=== PATIENT | male | born 1965 | race Caucasian/White ===

== ENCOUNTER → 2017-12-07 | Outpatient (CLI) | payer MEDICARE ==
--- NOTE | 2017-12-07 16:44 | CT ---
EXAMINATION TYPE: CT abdomen pelvis w con DATE OF EXAM: 12/07/2017 COMPARISON: NONE HISTORY: 52-year-old male complains of periumbilical pain and increased white blood cell count. TECHNIQUE: Contiguous axial scanning of the abdomen and pelvis following administration of 100 ml Omn ipaque 300 IV contrast. Delayed images through the kidneys and coronal/sagittal reconstructions perf ormed. CT DLP: 543.3 mGycm Automated exposure control for dose reduction was used. FINDINGS: Heart is normal size without pericardial effusion. Dependent atelectasis both lung bases. No pleural effusion. No focal liver lesion or biliary ductal dilatation. Portal venous system is patent. Gallbladder, adrenal glands, left kidney, spleen, and pancreas appear within normal limits. There is a 1.9 cm central cyst in the mid right kidney. Symmetric uptake and excretion of contrast from both k idneys. No dilated small bowel, free fluid, or free air. Normal appendix. Oral contrast has progressed to the rectum. No pericolonic inflammatory change. No mesenteric or retroperitoneal lymphadenopathy. Bladder is urine distended. No abnormal fluid collection in the pelvis or pelvic lymphadenopathy. Bones: Postsurgical changes of L4-L5 posterior fusion with laminectomies. IMPRESSION: NO ACUTE INFLAMMATORY PROCESS IDENTIFIED IN THE ABDOMEN OR PELVIS TO EXPLAIN THE PATIENT'S SYMPTOMS.
== END | disposition home or self-care (01) ==
LOC: RADCTMAIN 12:27
PROVIDERS: ATTEND Family Medicine
DX: R10.9 Unspecified abdominal pain (principal)
CPT/HCPCS: 74177; Q9967

== ENCOUNTER 2019-04-23 09:05 | Day surgery (SDC) | payer OTHER, MEDICARE ==
[2019-04-18 16:14] VITALS: BMI 28.3
[~2019-04-23 09:05] MED LIST: LACTATED RINGERS 1,000 ML IV SCH; LIDOCAINE 1% 20 ML VIAL (10MG/ML) FOR IV START INTRADERMA PRN
[2019-04-23 09:37] VITALS: RESP 16; TEMP 97.5
[2019-04-23] MEDS ORDERED: PROPOFOL 10 MG/ML 20 ML VIAL IV ONE (10:09)
--- NOTE | 2019-04-23 10:15 | P.GSHP ---
History of Present Illness H&P Date: 04/23/19 Chief Complaint: Screening colonoscopy This is a 53-year-old male who presents today for screening colonoscopy. Patient denies a significant GI complaints. Past Medical History Past Medical History: Hypertension History of Any Multi-Drug Resistant Organisms: None Reported Past Surgical History: Back Surgery Past Anesthesia/Blood Transfusion Reactions: No Reported Reaction Smoking Status: Current some day smoker - Past Family History Mother Family Medical History: Deep Vein Thrombosis (DVT) Father Family Medical History: Cancer Additional Family Medical History / Comment(s): Prostate Medications and Allergies Home Medications Medication Instructions Recorded Confirmed Type Diazepam [Valium] 5 mg PO BID 04/18/19 04/23/19 History Lisinopril [Zestril] 20 mg PO DAILY 04/18/19 04/23/19 History Methadone [Dolophine] 10 mg PO Q8H PRN 04/18/19 04/23/19 History Varenicline [Chantix Starter Pack] 0.5 mg PO DAILY 04/18/19 04/23/19 History Allergies Allergy/AdvReac Type Severity Reaction Status Date / Time No Known Allergies Allergy Verified 04/18/19 15:58 Surgical - Exam Vital Signs Temp Pulse Resp BP Pulse Ox 97.5 F L 86 16 134/86 96 04/23/19 09:30 04/23/19 09:30 04/23/19 09:30 04/23/19 09:30 04/23/19 09:30 - General well developed, well nourished, no distress - Eyes PERRL - ENT normal pinna - Neck no masses - Respiratory normal expansion - Cardiovascular Rhythm: regular - Abdomen Abdomen: soft, non tender Assessment and Plan Assessment: We'll perform screening colonoscopy.
--- NOTE | 2019-04-23 10:27 | P.OP ---
Date of Procedure: 04/23/19 Preoperative Diagnosis: Screening colonoscopy Postoperative Diagnosis: Diverticulosis Rectal polyps Procedure(s) Performed: Colonoscopy Anesthesia: MAC Surgeon: Chip Galicia Pathology: other (Rectal polyp) Condition: stable Disposition: PACU Description of Procedure: The patient's placed on the endoscopy table in the lateral position. She he received IV sedation. Digital rectal exam was performed revealed no abnormalities. The flexible colonoscope was then placed patient anus and passed throughout the entire colon. The ileocecal valve was visualized. The cecum, ascending and transverse colon appeared normal. In the descending and sigmoid: was mild diverticular changes. The scope was then brought back and the rectum and there was several polyp seen this removed with a cold forcep. Scope was withdrawn for patient.
[2019-04-23 11:07] VITALS: BP 134/89; PULSE 71
== END 2019-04-23 11:11 | disposition home or self-care (01) ==
LOC: ORWHC2ENDO 09:05
PROVIDERS: ATTEND Surgery
DX: Z12.11 Encounter for screening for malignant neoplasm of colon (principal); K57.30 Diverticulosis of large intestine without perforation or abscess without bleeding; K62.1 Rectal polyp; I10 Essential (primary) hypertension; F17.200 Nicotine dependence, unspecified, uncomplicated; Z80.42 Family history of malignant neoplasm of prostate; Z79.899 Other long term (current) drug therapy
CPT/HCPCS: 88305; 45380; J2704

== ENCOUNTER 2019-05-17 08:43 | Day surgery (SDC) | payer OTHER, MEDICARE ==
[2019-05-15 09:49] VITALS: BMI 29.5
[~2019-05-17 08:43] MED LIST changes: -LIDOCAINE 1% 20 ML VIAL (10MG/ML) FOR IV START INTRADERMA PRN
[2019-05-17 08:58] VITALS: RESP 16; TEMP 97.3
[2019-05-17] MEDS ORDERED: PROPOFOL 10 MG/ML 20 ML VIAL IV ONE (09:30)
--- NOTE | 2019-05-17 09:33 | P.GSHP ---
History of Present Illness H&P Date: 05/17/19 Chief Complaint: . GERD This is a 53-year-old male referred from Dr. Dennis Samuel. Patient's today for EGD. He's had issues with GERD. He also has a strong family history of esophageal cancer with his father having esophageal cancer. Past Medical History Past Medical History: Hypertension Additional Past Medical History / Comment(s): hx H. Pyloir, stomach pains, degenerative disks History of Any Multi-Drug Resistant Organisms: None Reported Past Surgical History: Back Surgery, Orthopedic Surgery Additional Past Surgical History / Comment(s): EGD, Colonoscopy, back surgery x 2(has cage), surgery for index finger left hand to reattach finger Past Anesthesia/Blood Transfusion Reactions: No Reported Reaction Smoking Status: Current some day smoker - Past Family History Mother Family Medical History: Deep Vein Thrombosis (DVT) Father Family Medical History: Cancer Additional Family Medical History / Comment(s): esophageal Medications and Allergies Home Medications Medication Instructions Recorded Confirmed Type Diazepam [Valium] 5 mg PO BID 04/18/19 05/17/19 History Lisinopril [Zestril] 20 mg PO DAILY 04/18/19 05/17/19 History Methadone [Dolophine] 10 mg PO Q8H PRN 04/18/19 05/17/19 History Varenicline Tartrate [Chantix 1 mg PO DIRECTED 05/15/19 05/17/19 History Continuing Pack] Allergies Allergy/AdvReac Type Severity Reaction Status Date / Time No Known Allergies Allergy Verified 05/17/19 08:53 Surgical - Exam Vital Signs Temp Pulse Resp BP Pulse Ox 97.3 F L 76 16 134/92 98 05/17/19 08:55 05/17/19 08:55 05/17/19 08:55 05/17/19 08:55 05/17/19 08:55 - General well developed, well nourished, no distress - Eyes PERRL - ENT normal pinna - Neck no masses - Respiratory normal expansion - Cardiovascular Rhythm: regular - Abdomen Abdomen: soft, non tender Assessment and Plan Assessment: GERD. We'll perform EGD.
--- NOTE | 2019-05-17 09:47 | P.OP ---
Date of Procedure: 05/17/19 Preoperative Diagnosis: GERD Postoperative Diagnosis: Antral gastritis Esophagitis Procedure(s) Performed: EGD Anesthesia: MAC Surgeon: Chip Galicia Pathology: other (Antrum, esophagus) Condition: stable Disposition: PACU Description of Procedure: The patient's placed on the endoscopy table in the lateral position. He received IV sedation. The gastroscope placed oropharynx passed in the esophagus into the stomach. Scope was then placed through the pylorus. The first and second portion of the duodenum. Normal. Scope was then brought back and the antrum was mildly inflamed. A biopsies performed. The scope was then retroflexed the remainder some appeared normal. There is no significant hiatal hernia. The GE junction was at 40 cm The distal esophagus. Inflamed and biopsies were performed. The proximal esophagus appeared normal. Scope was withdrawn for patient.
[2019-05-17 10:05] VITALS: BP 124/83; PULSE 78
== END 2019-05-17 10:31 | disposition home or self-care (01) ==
LOC: ORWHC2ENDO 08:43
PROVIDERS: ATTEND Surgery
DX: K29.50 Unspecified chronic gastritis without bleeding (principal); K21.0 Gastro-esophageal reflux disease with esophagitis; I10 Essential (primary) hypertension; F17.200 Nicotine dependence, unspecified, uncomplicated; Z79.899 Other long term (current) drug therapy
CPT/HCPCS: 88305; 43239; J2704

== ENCOUNTER → 2019-06-07 | Outpatient (CLI) | payer MEDICARE, OTHER ==
[2019-06-07 13:32] LABS: Basophils # (A) 0.1 k/uL (0-0.2); Basophils % (A) 1 %; Eosinophils # (A) 0.2 k/uL (0-0.7); Eosinophils % (A) 2 %; HCT 54.1 % (39.0-53.0); HGB 17.7 gm/dL (13.0-17.5); Lymphocytes # (A) 2.8 k/uL (1.0-4.8); Lymphocytes % (A) 25 %; MCH 35.1 pg (25.0-35.0); MCHC 32.8 g/dL (31.0-37.0); MCV 107.2 fL (80.0-100.0); Macrocytosis Moderate; Mean Platelet Volume 7.4; Monocytes # (A) 0.5 k/uL (0-1.0); Monocytes % (A) 5 %; Neutrophils # (A) 7.2 k/uL (1.3-7.7); Neutrophils % (A) 66 %; Platelet Count 217 k/uL (150-450); RBC 5.05 m/uL (4.30-5.90); RDW 13.5 % (11.5-15.5); WBC 10.9 k/uL (3.8-10.6)
== END | disposition home or self-care (01) ==
LOC: LABPAT 12:17
PROVIDERS: ATTEND Surgery
DX: Z01.818 Encounter for other preprocedural examination (principal); K21.0 Gastro-esophageal reflux disease with esophagitis; F17.200 Nicotine dependence, unspecified, uncomplicated; Z01.812 Encounter for preprocedural laboratory examination
CPT/HCPCS: 36415; 85025; 93005

== ENCOUNTER 2019-06-12 08:31 | Observation (INO) | payer OTHER, MEDICARE ==
[~2019-06-12 08:31] MED LIST changes: +DEXAMETHASONE SOD PHOSPHATE 10 MG/ML 1 ML VIAL IV ONE; +HEPARIN SODIUM,PORCINE 5,000 UNIT/ML 1 ML VIAL SQ ONE; -LACTATED RINGERS 1,000 ML IV SCH; +LIDOCAINE 1% 20 ML VIAL (10MG/ML) FOR IV START INTRADERMA PRN; +MIDAZOLAM 2 MG/2 ML VIAL IV PRN; +ONDANSETRON 4 MG/2 ML VIAL IVP ONE; +SCOPOLAMINE 1.5MG/72HR PATCH TRANSDERM ONE
[2019-06-12] MEDS ORDERED: LACTATED RINGERS 1,000 ML IV ONE ×2 (09:02→11:28)
--- NOTE | 2019-06-12 10:31 | P.GSHP ---
History of Present Illness H&P Date: 06/12/19 Chief Complaint: GERD This a 53-year-old male referred from Dr. Dennis Samuel.The patient has had long- standing problems with reflux esophagitis. The patient underwent recent EGD is found have evidence of esophagitis. Patient has been well informed on the procedure of laparoscopic Maeve fundoplication. The patient is aware the risk of the conversion to the open procedure, risk of injury to the stomach, liver and spleen. The patient is also a risk of recurrent GERD and dysphagia symptoms. The patient understands there is a postoperative diet of full liquids for 2 weeks after surgery. Past Medical History Past Medical History: GERD/Reflux, Hypertension Additional Past Medical History / Comment(s): hx H. Pylori, stomach pains, degenerative disks History of Any Multi-Drug Resistant Organisms: None Reported Past Surgical History: Back Surgery, Orthopedic Surgery Additional Past Surgical History / Comment(s): EGD, Colonoscopy, back surgery x 2(has cage), surgery for index finger left hand to reattach finger Past Anesthesia/Blood Transfusion Reactions: No Reported Reaction Smoking Status: Current some day smoker - Past Family History Mother Family Medical History: Deep Vein Thrombosis (DVT) Father Family Medical History: Cancer Additional Family Medical History / Comment(s): esophageal Medications and Allergies Home Medications Medication Instructions Recorded Confirmed Type Diazepam [Valium] 5 mg PO BID 04/18/19 06/04/19 History Lisinopril [Zestril] 20 mg PO DAILY 04/18/19 06/04/19 History Methadone [Dolophine] 10 mg PO Q8H 04/18/19 06/04/19 History Varenicline Tartrate [Chantix 1 mg PO DIRECTED 05/15/19 06/04/19 History Continuing Pack] Allergies Allergy/AdvReac Type Severity Reaction Status Date / Time No Known Allergies Allergy Verified 06/04/19 14:01 Surgical - Exam Vital Signs Temp Pulse Resp BP Pulse Ox 98.3 F 96 18 157/75 96 06/12/19 08:50 06/12/19 08:50 06/12/19 08:50 06/12/19 08:50 06/12/19 08:50 - General well developed, well nourished, no distress - Eyes PERRL - ENT normal pinna - Neck no masses - Respiratory normal expansion - Cardiovascular Rhythm: regular - Abdomen Abdomen: soft, non tender Assessment and Plan Assessment: GERD. We'll perform laparoscopic Maeve fundoplication.
[2019-06-12] MEDS ORDERED: SUCCINYLCHOLINE CHLORIDE 100 MG/5 ML SYR IV ONE (10:46)
[2019-06-12] MEDS ORDERED: fentaNYL (PF) 50 MCG/ML 2 ML AMP ONE (10:46)
[2019-06-12] MEDS ORDERED: HYDROmorphone (PF) 1 MG/ML ONE (10:46)
[2019-06-12] MEDS ORDERED: NEOSTIGMINE 1 MG/ML 10 ML VIAL ONE (10:46)
[2019-06-12] MEDS ORDERED: LIDOCAINE 1% INJ 10MG/ML (20 ML MDV) ONE (10:46)
[2019-06-12] MEDS ORDERED: MIDAZOLAM 2 MG/2 ML VIAL ONE (10:46)
[2019-06-12] MEDS ORDERED: PROPOFOL 10 MG/ML 20 ML VIAL IV ONE (10:46)
[2019-06-12] MEDS ORDERED: DEXAMETHASONE SOD PHOS (MDV) 100 MG/10 ML VIAL ONE (10:46)
[2019-06-12] MEDS ORDERED: PHENYLEPHRINE-0.9% NACL SYG 1 MG/10 ML SYRINGE ONE (10:46)
[2019-06-12] MEDS ORDERED: ROCURONIUM BROMIDE 10 MG/ML 10 ML VIAL IV ONE (10:46)
[2019-06-12] MEDS ORDERED: GLYCOPYRROLATE 0.2 MG/ML 2 ML VIAL ONE (10:46)
[2019-06-12] MEDS ORDERED: KETOROLAC 30 MG/ML 1 ML VIAL ONE (10:46)
[2019-06-12] MEDS ORDERED: BUPIVACAIN-EPI 0.25%-1:200,000 30 ML VIAL SQ ONE (11:29)
[2019-06-12] MEDS: HYDROmorphone 0.5 MG/0.5 ML SYRINGE IVP PRN ×4 (12:14→12:36)
--- NOTE | 2019-06-12 12:32 | P.OP ---
Date of Procedure: 06/12/19 Preoperative Diagnosis: GERD Postoperative Diagnosis: GERD Procedure(s) Performed: Laparoscopic Maeve fundoplication Anesthesia: DAR Surgeon: Chip Galicia Pathology: none sent Condition: stable Disposition: PACU Description of Procedure: Estefani patient was placed on the operating table in the supine position. The patient received general anesthesia. And was placed in dorsal lithotomy position. The patient was prepped and draped in the usual sterile fashion. The skin incision sites were anesthetized with 1% local Xylocaine. The skin was incised in the left periumbilical area and then using a blade less 5 mm trocar under direct visualization panel cavity was entered. After adequate insufflation the laparoscope was then placed into the peritoneal cavity. Next a 5 mm trochars placed in the right epigastric position. Another 5 millimeter trocar the right lateral position. Another 5 millimeter trocar in the left lateral position a 5 mm trocar is placed in the left epigastric position. And then the initial 5 mm trocar was exchanged for a 10 mm trocar. The left lateral lobe liver was retracted. The hernia was seen. The crural defect was then dissected using the Harmonic scissors device. A 360 crural dissection was performed the esophagus stomach was reduced back into the peritoneal Cavity. The crural defect was then closed using 2-0 Ethibond suture. Next the fundus of the stomach was mobilized using the Midland scissors device. and then a 58- Occitan bougie dilator was placed oropharynx passed into the esophagus and stomach the fundal plication wrap was then performed by grasping the fundus posteriorly and bringing it around the esophagus and stomach fundoplication was then performed using 2-0 Ethibond suture. Care was taken that the fundal location rested over top of the intra-abdominal esophagus. There was no injury seen to the stomach or esophagus. The dilator was then withdrawn. The abdomen was irrigated there is no bleeding seen. The trochars were then withdrawn and then skin incision sites were closed using 3-0 Monocryl suture Steri-Strips are applied. Patient thought procedure well and sent to recovery room in stable condition.
[2019-06-12] MEDS ORDERED: ONDANSETRON 4 MG/2 ML VIAL IVP PRN (12:33)
[2019-06-12] MEDS: LACTATED RINGERS 1,000 ML IV SCH ×2 (13:53→23:08)
[2019-06-12] MEDS: D5-0.45% NACL WITH KCL 20MEQ/L 1,000 ML IV SCH ×2 (15:12→22:31)
[2019-06-12] MEDS: HYDROmorphone 1 MG/ML 1 ML SYRINGE IVP PRN ×3 (15:13→23:15)
--- NOTE | 2019-06-12 16:58 | FL ---
SINGLE CONTRAST ESOPHAGRAM: CLINICAL HISTORY: 53-year-old male status post Maeve fundoplication, rule out leak/obstruction TECHNIQUE: Single contrast exam performed with 50 ml Omnipaque 350 contrast. Total fluoroscopy time: 47 seconds. Total images: 13. FINDINGS: The patient swallowed oral contrast without difficulty or delay. Esophageal peristalsis and motility are within normal limits. There is mild delay in the passage of contrast from the esophagus into th e stomach. No evidence for extravasation of contrast at the surgical level, GE junction, to suggest l eak. There is trace crescent of free air below the right hemidiaphragm IMPRESSION: Mild postoperative obstruction at the surgical level. No evidence of leak. Trace post surgical free a ir on the right.
[2019-06-13] MEDS: HYDROmorphone 1 MG/ML 1 ML SYRINGE IVP PRN ×2 (03:56→08:55)
[2019-06-13] MEDS: D5-0.45% NACL WITH KCL 20MEQ/L 1,000 ML IV SCH (06:10)
[2019-06-13 08:25] VITALS: BP 142/90; PULSE 92; RESP 15; TEMP 97.5
[2019-06-13] MEDS ORDERED: ENOXAPARIN 40 MG/0.4 ML SYRINGE SQ SCH (09:00)
[2019-06-13] MEDS ORDERED: HYDROcodone/APAP 5-325MG 1 EACH TAB PO PRN (09:04)
--- NOTE | 2019-06-13 09:58 | P.CONS ---
History of Present Illness - Reason for Consult Consult date: 06/13/19 Medical management, hypertension, anxiety, nicotine/marijuana use Requesting physician: Chip Galicia - Chief Complaint Gastroesophageal reflux disease - History of Present Illness This is a 53-year-old gentleman admitted with history of significant gastroesophageal reflux disease, status post EGD report reflux esophagitis hypertension, history of H. pylori, stomach pains, degenerative disc disease, status post spinal surgery, anxiety, ongoing nicotine dependence, marijuana use and multiple other medical issues. Patient is status post laparoscopic nice and fundoplication, tolerated procedure well. Vital signs stable. Past esophagram with niece on clear liquid diet initiated. Ambulating, showered this morning, tolerating exertion well. No flatus, no bowel movement. Currently denies abdominal pain. No nausea, no vomiting. Denies chest pain, palpitations or shortness of breath. Past Medical History Past Medical History: GERD/Reflux, Hypertension Additional Past Medical History / Comment(s): hx H. Pylori, stomach pains, degenerative disks History of Any Multi-Drug Resistant Organisms: None Reported Past Surgical History: Back Surgery, Orthopedic Surgery Additional Past Surgical History / Comment(s): EGD, Colonoscopy, back surgery x 2(has cage), surgery for index finger left hand to reattach finger Past Anesthesia/Blood Transfusion Reactions: No Reported Reaction Past Psychological History: Anxiety Smoking Status: Current some day smoker Past Alcohol Use History: Occasional Additional Past Alcohol Use History / Comment(s): Taking Chantix now, smoked approx 2 ppd but has cut back to 3-4 cigarettes per day. Past Drug Use History: Marijuana - Past Family History Mother Family Medical History: Deep Vein Thrombosis (DVT) Father Family Medical History: Cancer Additional Family Medical History / Comment(s): esophageal Medications and Allergies Home Medications Medication Instructions Recorded Confirmed Type Diazepam [Valium] 5 mg PO BID 04/18/19 06/13/19 History Lisinopril [Zestril] 20 mg PO DAILY 04/18/19 06/13/19 History Methadone [Dolophine] 10 mg PO Q8H 04/18/19 06/13/19 History Varenicline Tartrate [Chantix 1 mg PO BID 05/15/19 06/13/19 History Continuing Pack] Allergies Allergy/AdvReac Type Severity Reaction Status Date / Time No Known Allergies Allergy Verified 06/13/19 06:19 Physical Exam Vitals: Vital Signs Temp Pulse Pulse Resp BP Pulse Ox 06/13/19 07:46 97.5 F L 92 15 142/90 97 06/13/19 02:15 96.7 F L 106 H 16 122/55 94 L 06/12/19 20:33 98.2 F 107 H 16 117/77 94 L 06/12/19 15:45 109 H 114/61 93 L 06/12/19 15:41 16 06/12/19 15:30 100 128/78 94 L 06/12/19 15:15 111 H 146/93 93 L 06/12/19 15:00 103 H 124/86 93 L 06/12/19 14:45 102 H 136/88 94 L 06/12/19 14:30 103 H 129/72 93 L 06/12/19 14:15 104 H 120/68 91 L 06/12/19 14:00 97.8 F 85 16 123/70 94 L 06/12/19 13:32 93 16 108/55 96 06/12/19 13:00 76 16 96/54 93 L 06/12/19 12:45 75 16 114/65 94 L 06/12/19 12:31 75 16 114/65 95 06/12/19 12:16 74 16 124/73 97 06/12/19 12:05 96.8 F L 78 14 125/85 95 06/12/19 08:50 98.3 F 96 18 157/75 96 Intake and Output 06/12/19 06/13/19 06/13/19 22:59 06:59 14:59 Intake Total 1480 590 Balance 1480 590 Intake: Intake, IV Titration 1000 Amount D5-0.45% NaCl with KCl 1000 20Meq/l 1,000 ml @ 125 mls/hr IV .Q8H [facility] Rx#: [id number] Oral 480 590 Other: Voiding Method Toilet # Voids 3 2 PHYSICAL EXAM: VITAL SIGNS: As above GENERAL: Sitting up in bed, no acute distress HEENT: Conjunctivae normal. eyes normal. NECK: No JVD. No thyroid enlargement. No LNs CARDIOVASCULAR: S1, S2 regular.. No murmur RESPIRATION: Breath sounds diminished in the bases. No rhonchi or crackles. No bronchial breathing. ABDOMEN: Soft, distended, status post surgery. No guarding.Bowel sounds heard. LEGS: No edema. no swelling PSYCHIATRY: Alert and oriented X3, mood and affect normal. NERVOUS SYSTEM: Cranial N 2-12 grossly normal. Moves all 4 limbs. No focal deficits. Strength and sensation grossly intact.. Skin: no lesions, no rash Lymphatic system. No LN neck axilla or groin. Assessment and Plan Assessment: -Gastroesophageal reflux disease with reflux esophagitis, status post fundoplication,laparoscopic -Hypertension -Anxiety -Ongoing nicotine dependence -Marijuana use Plan: Continue current medication regime ,monitoring and symptomatic treatment. Vital signs stable, okay to resume JORGE inhibitor once cleared by surgery. Increase ambulation as tolerated. Discharge planning in progress as per surgery. Further recommendations to follow. The impression and plan of care has been dictated as directed. : I performed a history and examination of this patient, discussed the same with the dictator. I agree with the dictator's note ,documented as a scribe. Any additional findings or plans will be noted.
[2019-06-13] MEDS ORDERED: NICOTINE 14MG/24HR PATCH TRANSDERM SCH (10:00)
[2019-06-13] MEDS ORDERED: LISINOPRIL 20 MG TAB PO SCH (11:15)
[2019-06-13] MEDS ORDERED: ACETAMINOPHEN TAB 325 MG TAB PO PRN (11:21)
[2019-06-13 13:35] VITALS: BMI 29.2
--- NOTE | 2019-06-13 15:27 | P.DS ---
Providers Date of admission: 06/12/19 23:42 Expected date of discharge: 06/13/19 Attending physician: Chip Galicia Consults: 06/12/19 12:33 Consult Physician Routine Consulting Provider: Dennis Polo Consult Reason/Comments: Medical management Do you want consulting provider notified?: Yes Primary care physician: [facility] Course: 53-year-old male who underwent Maeve fundoplication with Dr. Galicia. Patient doing well postoperative day. Esophagram negative for leak or obstruction. Tolerating clear liquid diet. Pain controlled on oral medications. He is stable for discharge home today. Please see EMR for further hospital course details. No narcotics prescribed at time of discharge as patient takes methadone outpatient. Discharge diagnosis 1. GERD, status post Maeve fundoplication Nurse practitioner note has been reviewed by physician. Signing provider agrees with the documented findings, assessment, and plan of care. Plan - Discharge Summary Discharge Rx Participant: Yes New Discharge Prescriptions: New Acetaminophen Tab [Tylenol Tab] 650 mg PO Q4H PRN #30 tablet PRN Reason: Pain No Action Methadone [Dolophine] 10 mg PO Q8H Lisinopril [Zestril] 20 mg PO DAILY Diazepam [Valium] 5 mg PO BID Varenicline Tartrate [Chantix Continuing Pack] 1 mg PO BID Discharge Medication List Diazepam [Valium] 5 mg PO BID 04/18/19 [History] Lisinopril [Zestril] 20 mg PO DAILY 04/18/19 [History] Methadone [Dolophine] 10 mg PO Q8H 04/18/19 [History] Varenicline Tartrate [Chantix Continuing Pack] 1 mg PO BID 05/15/19 [History] Acetaminophen Tab [Tylenol Tab] 650 mg PO Q4H PRN #30 tablet 06/13/19 [Rx] Follow up Appointment(s)/Referral(s): Dennis Polo MD [Primary Care Provider] - 06/20/19 9:00 am Chip Galicia MD [STAFF PHYSICIAN] - 06/26/19 2:20 pm Patient Instructions/Handouts: *Surgery [facility] - ([facility]) Lap Maeve Fundiplication Post-Op Instructions Activity/Diet/Wound Care/Special Instructions: No lifting over 10 pounds You may shower. No soaking or tub baths Very light activity until you are reevaluated at your follow up appointment with your surgeon Full liquid diet for two weeks Discharge Disposition: HOME SELF-CARE
== END 2019-06-13 13:58 | disposition home or self-care (01) ==
LOC: OR 08:31 → 4SSUR 12:01 → OR 23:51
PROVIDERS: ADMIT Surgery; ATTEND Surgery
DX: K21.0 Gastro-esophageal reflux disease with esophagitis (principal); I10 Essential (primary) hypertension; F41.9 Anxiety disorder, unspecified; F12.90 Cannabis use, unspecified, uncomplicated; F17.210 Nicotine dependence, cigarettes, uncomplicated; Z86.19 Personal history of other infectious and parasitic diseases; Z79.899 Other long term (current) drug therapy; Z79.891 Long term (current) use of opiate analgesic; Z83.2 Family history of diseases of the blood and blood-forming organs and certain disorders involving the immune mechanism; Z80.0 Family history of malignant neoplasm of digestive organs
CPT/HCPCS: 74210; 43280; G0378 ×2; S4990; J2250; J1644; J1100 ×2; J2710; J0690; J2405; J2001; J1650; J3010; J1885; J1170 ×3; J2370; J0330; J2704; Q9967

== ENCOUNTER 2020-07-25 08:27 | Day surgery (SDC) | payer OTHER, MEDICARE ==
[2020-06-27 14:38] VITALS: BMI 29.2
[~2020-07-25 08:27] MED LIST changes: -DEXAMETHASONE SOD PHOSPHATE 10 MG/ML 1 ML VIAL IV ONE; -HEPARIN SODIUM,PORCINE 5,000 UNIT/ML 1 ML VIAL SQ ONE; +LACTATED RINGERS 1,000 ML IV SCH; +LIDOCAINE 1% (10MG/ML) FOR IV START INTRADERMA PRN; -LIDOCAINE 1% 20 ML VIAL (10MG/ML) FOR IV START INTRADERMA PRN; -MIDAZOLAM 2 MG/2 ML VIAL IV PRN; -ONDANSETRON 4 MG/2 ML VIAL IVP ONE; -SCOPOLAMINE 1.5MG/72HR PATCH TRANSDERM ONE
[2020-07-25 08:51] VITALS: RESP 18; TEMP 97.4
[2020-07-25] MEDS ORDERED: LACTATED RINGERS 1,000 ML IV ONE (08:51)
[2020-07-25] MEDS ORDERED: PROPOFOL 10 MG/ML 20 ML VIAL IV ONE (09:55)
--- NOTE | 2020-07-25 09:56 | P.GSHP ---
History of Present Illness H&P Date: 07/25/20 Chief Complaint: Nausea, vomiting Is a 54-year-old male with a safer EGD. He has issues with nausea vomiting. Past Medical History Past Medical History: GERD/Reflux, Hypertension Additional Past Medical History / Comment(s): hx H. Pylori, stomach pains, degenerative disks History of Any Multi-Drug Resistant Organisms: None Reported Past Surgical History: Back Surgery, Bariatric Surgery, Orthopedic Surgery Additional Past Surgical History / Comment(s): EGD, Colonoscopy, back surgery x 2(has cage), surgery for index finger left hand to reattach finger Past Anesthesia/Blood Transfusion Reactions: No Reported Reaction Smoking Status: Current every day smoker - Past Family History Mother Family Medical History: Deep Vein Thrombosis (DVT) Father Family Medical History: Cancer Additional Family Medical History / Comment(s): esophageal Medications and Allergies Home Medications Medication Instructions Recorded Confirmed Type Methadone [Dolophine] 10 mg PO Q8H 04/18/19 07/24/20 History lisinopriL [Zestril] 20 mg PO DAILY 04/18/19 07/24/20 History Varenicline Tartrate [Chantix 1 mg PO BID 05/15/19 07/24/20 History Continuing Pack] Acetaminophen Tab [Tylenol Tab] 650 mg PO Q4H PRN #30 tablet 06/13/19 07/24/20 Rx Allergies Allergy/AdvReac Type Severity Reaction Status Date / Time No Known Allergies Allergy Verified 07/24/20 11:37 Surgical - Exam Vital Signs Temp Pulse Resp BP Pulse Ox 97.4 F L 102 H 18 129/83 97 07/25/20 08:50 07/25/20 08:50 07/25/20 08:50 07/25/20 08:50 07/25/20 08:50 - General well developed, well nourished, no distress - Eyes PERRL - ENT normal pinna - Neck no masses - Respiratory normal expansion - Cardiovascular Rhythm: regular - Abdomen Abdomen: soft, non tender Assessment and Plan Assessment: Nausea vomiting. We'll perform EGD.
--- NOTE | 2020-07-25 10:10 | P.OP ---
Date of Procedure: 07/25/20 Preoperative Diagnosis: Nausea Vomiting Postoperative Diagnosis: Antral gastritis Procedure(s) Performed: EGD Anesthesia: MAC Surgeon: Chip Galicia Pathology: other (Antrum) Condition: stable Disposition: PACU Description of Procedure: The patient's placed on the endoscopy table in the lateral position. He received IV sedation. The gastroscope placed oropharynx passed in the esophagus and stomach. Scope was placed through the pylorus. The first and second portion of duodenum appeared normal. Scope was then brought back the antrum this was mildly inflamed. A biopsies performed. Scope was unretroflexed and remainder of the stomach appeared normal. There is no evidence of a hiatal hernia. The GE junction was at 40 cm. The distal esophagus appeared normal. The proximal esophagus appeared normal. The scope was then withdrawn from patient.
[2020-07-25 10:34] VITALS: BP 120/84; PULSE 91
== END 2020-07-25 10:47 | disposition home or self-care (01) ==
LOC: ORWHC2ENDO 08:27
PROVIDERS: ATTEND Surgery
DX: K29.50 Unspecified chronic gastritis without bleeding (principal); I12.9 Hypertensive chronic kidney disease with stage 1 through stage 4 chronic kidney disease, or unspecified chronic kidney disease; N18.2 Chronic kidney disease, stage 2 (mild); J44.9 Chronic obstructive pulmonary disease, unspecified; J45.901 Unspecified asthma with (acute) exacerbation; F31.9 Bipolar disorder, unspecified; F41.9 Anxiety disorder, unspecified; F43.20 Adjustment disorder, unspecified; G89.4 Chronic pain syndrome; K21.9 Gastro-esophageal reflux disease without esophagitis; E78.5 Hyperlipidemia, unspecified; F17.200 Nicotine dependence, unspecified, uncomplicated; G62.9 Polyneuropathy, unspecified; N52.9 Male erectile dysfunction, unspecified; M51.16 Intervertebral disc disorders with radiculopathy, lumbar region; E55.9 Vitamin D deficiency, unspecified; E07.9 Disorder of thyroid, unspecified; F41.0 Panic disorder [episodic paroxysmal anxiety]; E78.00 Pure hypercholesterolemia, unspecified; D75.1 Secondary polycythemia; E23.0 Hypopituitarism; G47.00 Insomnia, unspecified; M47.24 Other spondylosis with radiculopathy, thoracic region; Z87.19 Personal history of other diseases of the digestive system; Z79.899 Other long term (current) drug therapy; Z98.890 Other specified postprocedural states; Z86.010 Personal history of colon polyps
CPT/HCPCS: 88305; 43239; J2704

== ENCOUNTER 2020-08-13 09:15 | Day surgery (SDC) | payer OTHER, MEDICARE ==
[2020-08-08 14:56] VITALS: BMI 29.2
[~2020-08-13 09:15] MED LIST changes: +ACETAMINOPHEN TAB 500 MG TAB PO ONE; +DEXAMETHASONE SOD PHOSPHATE 10 MG/ML 1 ML VIAL IV ONE; +HEPARIN SODIUM,PORCINE 5,000 UNIT/ML 1 ML VIAL SQ ONE
[2020-08-13] MEDS ORDERED: ONDANSETRON 4 MG/2 ML VIAL IVP ONE (10:08)
--- NOTE | 2020-08-13 10:41 | P.GSHP ---
History of Present Illness H&P Date: 08/13/20 Chief Complaint: Chronic cholecystitis Is a 52-year-old male with complaint throughout quadrant pain. Patient's had pain when eating greasy or fried foods. He presents today for laparoscopically stenting for chronic cholecystitis. Past Medical History Past Medical History: GERD/Reflux, Hypertension Additional Past Medical History / Comment(s): hx H. Pylori, stomach pains, degenerative disks, GALLBLADDER DISORDER History of Any Multi-Drug Resistant Organisms: None Reported Past Surgical History: Back Surgery, Bariatric Surgery, Orthopedic Surgery Additional Past Surgical History / Comment(s): EGD, Colonoscopy, back surgery x 2(has cage), surgery for index finger left hand to reattach finger Past Anesthesia/Blood Transfusion Reactions: No Reported Reaction Smoking Status: Current every day smoker - Past Family History Mother Family Medical History: Deep Vein Thrombosis (DVT) Father Family Medical History: Cancer Additional Family Medical History / Comment(s): esophageal Medications and Allergies Home Medications Medication Instructions Recorded Confirmed Type Methadone [Dolophine] 10 mg PO Q8H 04/18/19 08/13/20 History lisinopriL [Zestril] 20 mg PO DAILY 04/18/19 08/13/20 History Varenicline Tartrate [Chantix 1 mg PO BID 05/15/19 08/13/20 History Continuing Pack] Acetaminophen Tab [Tylenol Tab] 650 mg PO Q4H PRN #30 tablet 06/13/19 08/13/20 Rx Allergies Allergy/AdvReac Type Severity Reaction Status Date / Time No Known Allergies Allergy Verified 08/13/20 09:50 Surgical - Exam Vital Signs Temp Pulse Resp BP Pulse Ox 98.1 F 90 18 125/82 97 08/13/20 09:58 08/13/20 09:58 08/13/20 09:58 08/13/20 09:58 08/13/20 09:58 - General well developed, well nourished, no distress - Eyes PERRL - ENT normal pinna - Neck no masses - Respiratory normal expansion - Cardiovascular Rhythm: regular - Abdomen Abdomen: soft, non tender Assessment and Plan Assessment: Chronic cholecystitis. We'll perform laparoscopic cholecystectomy.
[2020-08-13] MEDS ORDERED: GLYCOPYRROLATE 0.2 MG/ML 2 ML VIAL ONE (11:08)
[2020-08-13] MEDS ORDERED: ROCURONIUM 10 MG/ML (10 ML VIAL) IV ONE (11:08)
[2020-08-13] MEDS ORDERED: SUCCINYLCHOLINE CHLORIDE 100 MG/5 ML SYR IV ONE (11:08)
[2020-08-13] MEDS ORDERED: PHENYLEPHRINE-0.9% NACL SYG 1 MG/10 ML SYRINGE ONE (11:08)
[2020-08-13] MEDS ORDERED: MIDAZOLAM 2 MG/2 ML VIAL ONE (11:08)
[2020-08-13] MEDS ORDERED: NEOSTIGMINE 1 MG/ML 10 ML VIAL ONE (11:08)
[2020-08-13] MEDS ORDERED: KETOROLAC 15 MG/ML 1 ML VIAL ONE (11:08)
[2020-08-13] MEDS ORDERED: LIDOCAINE 1% INJ 10MG/ML (20 ML MDV) ONE (11:08)
[2020-08-13] MEDS ORDERED: fentaNYL (PF) 50 MCG/ML 2 ML AMP ONE (11:08)
[2020-08-13] MEDS ORDERED: PROPOFOL 10 MG/ML 20 ML VIAL IV ONE (11:08)
[2020-08-13] MEDS ORDERED: BUPIVACAINE (PF) 0.5% 30 ML VIAL SQ ONE ×2 (11:25)
--- NOTE | 2020-08-13 11:47 | P.OP ---
Date of Procedure: 08/13/20 Preoperative Diagnosis: Cholecystitis Postoperative Diagnosis: Cholecystitis Procedure(s) Performed: Laparoscopic cholecystectomy Anesthesia: DAR Surgeon: Chip Galicia Estimated Blood Loss (ml): 5 Pathology: other (Gallbladder) Condition: stable Disposition: PACU Description of Procedure: The patient was placed on the operating table. The patient received a general endotracheal tube anesthesia. The patients abdomen was prepped and draped in the usual sterile fashion. Through an infraumbilical stab incision, the fascia of the anterior abdominal wall was grasped with a pair of Kochers and then the Veress needle was placed in the peritoneal cavity. Position of the Veress needle was confirmed with positive drop test. The abdomen was then insufflated. After adequate insufflation, the 10 mm trocar was placed in the peritoneal cavity. Following this the laparoscope was placed in the peritoneal cavity. The patient was placed in the head-up, right side up position and then a 5 mm trocar was placed in the right lateral and right subcostal position under direct visualization. A 8 mm trocar was placed in the epigastric position. The gallbladder was grasped in the fundus and infundibulum. Traction on the gallbladder was placed in the lateral and the cephalad positions. The triangle of Calot was visualized.. The cystic duct was bluntly dissected until the union of the cystic duct and common bile duct was seen. A critical view of safety was achieved. The cystic duct was then divided and sealed with the Harmonic scissors. A PDS Endoloop was then placed throughout the cystic duct stump. The cystic artery divided and sealed with the Harmonic scissors. The gallbladder was then removed from the liver bed using Harmonic scissors. The gallbladder was then extracted through the epigastric port site. Operative field was checked for any bleeding spots and Harmonic scissors was used to coagulate the liver bed. The abdomen was irrigated. The trocars were removed. The skin was closed using interrupted 3-0 Vicryl suture. Dermabond dressing were applied. The patient tolerated the procedure well.
[2020-08-13] MEDS ORDERED: LACTATED RINGERS 1,000 ML IV ONE (11:48)
[2020-08-13 12:17] VITALS: TEMP 97
[2020-08-13 13:11] VITALS: BP 104/63; PULSE 81; RESP 20
== END 2020-08-13 13:49 | disposition home or self-care (01) ==
LOC: OR 09:15
PROVIDERS: ATTEND Surgery
DX: K81.1 Chronic cholecystitis (principal); K21.9 Gastro-esophageal reflux disease without esophagitis; I10 Essential (primary) hypertension; F41.9 Anxiety disorder, unspecified; Z86.19 Personal history of other infectious and parasitic diseases; Z98.84 Bariatric surgery status; Z98.890 Other specified postprocedural states; F17.210 Nicotine dependence, cigarettes, uncomplicated; Z82.49 Family history of ischemic heart disease and other diseases of the circulatory system; Z80.0 Family history of malignant neoplasm of digestive organs; Z79.891 Long term (current) use of opiate analgesic; Z79.899 Other long term (current) drug therapy
CPT/HCPCS: 88304; 47562; J2250; J1644; J1100; J2710; J0690; J2405; J2001; J3010; J1885; J2370; J0330; J2704

== ENCOUNTER 2021-03-27 09:52 | Day surgery (SDC) | payer OTHER, MEDICARE ==
[2021-03-25 10:21] VITALS: BMI 29.2
[~2021-03-27 09:52] MED LIST changes: -ACETAMINOPHEN TAB 500 MG TAB PO ONE; -DEXAMETHASONE SOD PHOSPHATE 10 MG/ML 1 ML VIAL IV ONE; -HEPARIN SODIUM,PORCINE 5,000 UNIT/ML 1 ML VIAL SQ ONE; -LIDOCAINE 1% (10MG/ML) FOR IV START INTRADERMA PRN
[2021-03-27 10:08] VITALS: RESP 16; TEMP 97.3
[2021-03-27] MEDS ORDERED: LIDOCAINE 1% INJ 10MG/ML (20 ML MDV) ONE (12:13)
[2021-03-27] MEDS ORDERED: KETAMINE 10 MG/ML 20 ML VIAL ONE (12:13)
[2021-03-27] MEDS ORDERED: PROPOFOL 10 MG/ML 20 ML VIAL IV ONE (12:13)
[2021-03-27] MEDS ORDERED: GLYCOPYRROLATE 0.2 MG/ML 2 ML VIAL ONE (12:13)
--- NOTE | 2021-03-27 12:17 | P.GSHP ---
History of Present Illness H&P Date: 03/27/21 Chief Complaint: GERD This a 55-year-old male who presents today for EGD. He's had issues with GERD. Past Medical History Past Medical History: GERD/Reflux, Hypertension Additional Past Medical History / Comment(s): hx H. Pylori, stomach pains, degenerative disks, History of Any Multi-Drug Resistant Organisms: None Reported Past Surgical History: Back Surgery, Bariatric Surgery, Cholecystectomy, Orthopedic Surgery Additional Past Surgical History / Comment(s): EGD, Colonoscopy, back surgery x 2(has cage), surgery for index finger left hand to reattach finger Past Anesthesia/Blood Transfusion Reactions: No Reported Reaction Smoking Status: Current every day smoker - Past Family History Mother Family Medical History: Deep Vein Thrombosis (DVT) Father Family Medical History: Cancer Additional Family Medical History / Comment(s): esophageal Medications and Allergies Home Medications Medication Instructions Recorded Confirmed Type Methadone [Dolophine] 10 mg PO Q8H 04/18/19 03/27/21 History lisinopriL [Zestril] 20 mg PO DAILY 04/18/19 03/27/21 History Acetaminophen Tab [Tylenol Tab] 650 mg PO Q4H PRN #30 tablet 06/13/19 03/27/21 Rx Ibuprofen [Motrin] 600 mg PO Q6HR PRN #40 tab 08/13/20 03/27/21 Rx Simvastatin 10 mg PO DAILY 03/27/21 03/27/21 History Allergies Allergy/AdvReac Type Severity Reaction Status Date / Time No Known Allergies Allergy Verified 03/27/21 10:09 Surgical - Exam Vital Signs Temp Pulse Resp BP Pulse Ox 97.3 F L 97 16 127/89 98 03/27/21 10:05 03/27/21 10:05 03/27/21 10:05 03/27/21 10:05 03/27/21 10:05 - General well developed, well nourished, no distress - Eyes PERRL - ENT normal pinna - Neck no masses - Respiratory normal expansion - Cardiovascular Rhythm: regular - Abdomen Abdomen: soft, non tender Assessment and Plan Assessment: GERD. We'll perform EGD.
--- NOTE | 2021-03-27 12:25 | P.OP ---
Date of Procedure: 03/27/21 Preoperative Diagnosis: GERD Postoperative Diagnosis: Antral gastritis Procedure(s) Performed: EGD Anesthesia: MAC Surgeon: Chip Galicia Pathology: other (Antrum) Condition: stable Disposition: PACU Description of Procedure: The patient's placed on the endoscopy table in the lateral position. He recei deanna IV sedation. The gastroscope was oropharynx past esophagus and stomach. Scope was then placed through the pylorus. The first and second portion of the duodenum appeared normal. Scope was then brought back the antrum this appeared mildly inflamed. A biopsies performed. The scope was then retroflexed and the remainder of the stomach appeared normal. The GE junction was at 47 is. There was no significant hiatal hernia. The distal esophagusAppearedNormal. The proximal esophagus appeared normal scope was withdrawn for patient.
[2021-03-27 12:51] VITALS: BP 140/87; PULSE 99
== END 2021-03-27 13:15 | disposition home or self-care (01) ==
LOC: ORWHC2ENDO 09:52
PROVIDERS: ATTEND Surgery
DX: K21.9 Gastro-esophageal reflux disease without esophagitis (principal); K29.50 Unspecified chronic gastritis without bleeding; F17.210 Nicotine dependence, cigarettes, uncomplicated; I10 Essential (primary) hypertension; E78.5 Hyperlipidemia, unspecified; Z79.899 Other long term (current) drug therapy
CPT/HCPCS: 88305; 43239; J2001; J2704

== ENCOUNTER 2023-04-19 13:01 | Day surgery (SDC) | payer OTHER, MEDICARE ==
[2023-04-19 13:51] LABS: Platelet Count 395 k/uL (150-450)
[2023-04-19 13:55] VITALS: RESP 16; TEMP 98
[2023-04-19 13:55] LABS: INR 1.2 (<1.2)
[2023-04-19 14:03] LABS: African American GFR (CKD) >90 (>60 ml/min/1.73 sqM); Non-African American GFR(CKD) >90 (>60 ml/min/1.73 sqM)
[2023-04-19] MEDS: ALBUMIN HUMAN 25% 50 ML in EMPTY BAG 1 BAG IVPB SCH ×2 (14:19→14:34)
[2023-04-19 15:44] VITALS: BP 111/74; PULSE 89
[2023-04-20 02:56] LABS: T. Protein, Body Fluid Source Ascities; Total Protein, Body Fluid >3600 mg/dL
[2023-04-20 06:14] LABS: Appearance,BF Clear (Clear)
--- NOTE | 2023-04-20 08:55 | US ---
EXAMINATION TYPE: US paracentesis abd w/image DATE OF EXAM: 04/19/2023 CLINICAL HISTORY: Cirrhosis with pain and swelling. Ascites. Comparison: None Technique and findings: The procedure was discussed with the patient. The risks, complications, benefits, and alternatives we re discussed and any questions were answered. Informed consent was obtained. The patient was placed supine on the ultrasound table and prepped and draped in the usual sterile fas hion. All elements of maximal barrier technique were utilized. Under ultrasound guidance, access into the right lower quadrant was obtained, via the paracentesis catheter system and direct ultrasound guidanc e. Approximately 4.8 liters of straw-colored fluid was removed. Small sample sent to pathology for ramon sis as ordered. The patient was stable throughout the procedure and remained stable upon discharge fr Department of Radiology. IMPRESSION: Successful diagnostic and therapeutic paracentesis under ultrasound guidance.
== END 2023-04-19 15:10 | disposition home or self-care (01) ==
LOC: RADPROMAIN 13:01
PROVIDERS: ATTEND Internal Medicine Gastroenterology
DX: K74.60 Unspecified cirrhosis of liver (principal); R18.8 Other ascites
CPT/HCPCS: 82042; 89050; 82565; 85049; 85610; 87070; 87205; 87075; 84157; 36415; 49083; P9047; 88108; 88305

== ENCOUNTER 2025-04-30 19:54 | Emergency (ER) | payer MEDICARE, OTHER ==
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
[2025-04-30 20:09] LABS: Glucose,Whole Blood 144 mg/dL (70-110)
[2025-04-30 20:19] LABS: Basophils # (A) 0.05 10*3/uL (0.00-0.10); Basophils % (A) 0.4 %; Eosinophils # (A) 0.09 10*3/uL (0.04-0.35); Eosinophils % (A) 0.6 %; HCT 43.8 % (39.6-50.0); HGB 15.5 g/dL (13.0-17.0); Lymphocytes # (A) 1.81 10*3/uL (0.90-5.00); Lymphocytes % (A) 12.8 %; MCH 34.8 pg (27.0-32.0); MCHC 35.4 g/dL (32.0-37.0); MCV 98.2 fL (80.0-97.0); Monocytes # (A) 0.61 10*3/uL (0.20-1.00); Monocytes % (A) 4.3 %; Neutrophils # (A) 11.43 10*3/uL (1.80-7.70); Neutrophils % (A) 80.6 %; Platelet Count 248 10*3/uL (140-440); RBC 4.46 10*6/uL (4.40-5.60); RDW 12.0 % (11.5-14.5); WBC 14.18 10*3/uL (4.50-10.00)
[2025-04-30 20:31] LABS: ALT 50 U/L (4-49); African American GFR (CKD) >90 (>60 ml/min/1.73 sqM); Albumin 4.7 g/dL (3.5-5.0); Anion Gap 9 mmol/L; Blood Urea Nitrogen 12 mg/dL (9-20); Calcium 9.9 mg/dL (8.4-10.2); Carbon Dioxide 26 mmol/L (22-30); Chloride 103 mmol/L (98-107); Glucose 132 mg/dL (74-99); Non-African American GFR(CKD) >90 (>60 ml/min/1.73 sqM); Sodium 138 mmol/L (137-145); Total Protein 7.6 g/dL (6.3-8.2)
[2025-04-30 20:32] LABS: AST 76 U/L (17-59); Alkaline Phosphatase 82 U/L (38-126); Potassium 4.0 mmol/L (3.5-5.1)
[2025-04-30 20:36] LABS: INR 0.9 (<1.2); Partial Thromboplastin Time 22.2 sec (22.0-30.0); Prothrombin Time 10.3 sec (10.0-12.5)
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
[2025-04-30] MEDS: DIPH,PERTUS(ACELL)TETVAC-LF 0.5 ML VIAL IM ONE (22:04)
[2025-04-30] MEDS: BACITRACIN OINT 1 EACH PACKET TOPICAL ONE (22:06)
[2025-04-30] MEDS: IBUPROFEN 600 MG TAB PO STA (22:06)
[2025-04-30 22:37] VITALS: BP 122/68; PULSE 100; RESP 16; TEMP 98
== END 2025-04-30 22:35 | disposition home or self-care (01) ==
LOC: EC 19:54
DX: S29.9XXA Unspecified injury of thorax, initial encounter (principal); F17.200 Nicotine dependence, unspecified, uncomplicated; Z23 Encounter for immunization; V49.40XA Driver injured in collision with unspecified motor vehicles in traffic accident, initial encounter; V86.55XA Driver of 3- or 4- wheeled all-terrain vehicle (ATV) injured in nontraffic accident, initial encounter
CPT/HCPCS: 36415; 93005; 86900; 86901; 80053; 83605; 84484; 85025; 85610; 85730; 86850; 80320; 72170; 71045; 72125; 70450; 71260; 74177; 90715; 99285; 96365; 90471; J0690; Q9967